=== PATIENT | male | born 1995 | race Asian ===

== ENCOUNTER 2017-09-24 07:13 | Emergency (ER) | payer OTHER ==
[2017-09-24 07:33] VITALS: PULSE 71; BMI 21.4
--- NOTE | 2017-09-24 07:33 | PDOC ---
History of Present Illness - General Chief Complaint: Pain Stated Complaint: CHEST PAIN Time Seen by Provider: 09/24/17 07:22 - History of Present Illness Initial Comments: Kiet Abreu is a previously healthy 22yo man who presents today complaining of malaise, generalized weakness, subjective fever, and sternal chest pain for several days. He was recently diagnosed with bronchitis 3 days ago and prescribed azithromycin, which he has been taking as prescribed. Then 2 days ago, he had a wisdom tooth extracted, and he has also been taking amoxicillin since that time. He is still having significant pain from his dental work, but he denies any increased swelling, pain, or continued bleeding. Yesterday, Mr Duarte took acetaminophen 3 times for pain with some improvement. Over the past day, Mr Abreu has had a very poor appetite with minimal PO intake. When he woke up this morning, he felt extremely weak and ill. He additionally noted anterior chest pain. This pain is constant, non-radiating, and not associated with breathing, arm movement, or exertion. He has never experienced similar pain before. His mother and , present at bedside, report that they noticed him become unresponsive for several minutes after he initially complained of the chest pain. At that point, they decided he needed to be seen in the ED. Mr Abreu denies any nausea, vomiting, diarrhea, constipation, urinary symptoms, difficulty breathing, continued cough, or objective fever. He does endorse a headache as well as continued left sided mouth pain after his dental procedure. Other than the antibiotics and acetaminophen yesterday, he does not take any medications at home. Past History - Past Medical History Allergies/Adverse Reactions: Allergies Allergy/AdvReac Type Severity Reaction Status Date / Time No Known Allergies Allergy Verified 09/24/17 07:16 Home Medications: Ambulatory Orders NK [No Known Home Medication] 09/24/17 - Suicide/Smoking/Psychosocial Hx Smoking History: Never smoked Review of Systems - Review of Systems Comments:: General: +malaise, +tactile fevers, +anorexia, +generalized weakness HEENT: No changes in vision, no changes in hearing, no congestion, no sore throat. +recent tooth extraction CV: No palpitations, no LE edema. +anterior chest pain Pulm: No SOB, no wheezing. +recent bronchitis GI: No nausea or vomiting, no change in bowel habits, no melena : No frequency, no urgency, no dysuria Musc: No back pain, no joint swelling, no recent injury Skin: No rash, no lesions, no erythema Endo: No excessive thirst, no heat/cold intolerance Heme: No unusual bruising or bleeding, no swollen glands Neuro: No syncope, no numbness/tingling, no focal weakness Vasc: No claudication Psych: No recent change in mood, no SI or HI *Physical Exam - Vital Signs Last Vital Signs Temp Pulse Resp BP Pulse Ox 97.7 F 71 16 100/61 98 09/24/17 07:16 09/24/17 07:16 09/24/17 07:16 09/24/17 07:16 09/24/17 07:16 - Physical Exam Comments: General: Appears ill but in no acute distress HEENT: PERRL, EOMI, MMM, voice normal, normal neck ROM. s/p left wisdom tooth extraction, no bleeding, no significant edema or erythema, no pus or sign of infection Cards: RRR, no murmur appreciated Pulm: Comfortable on room air, clear to auscultation bilaterally. No chest wall pain with palpation Abd: Soft, nontender, nondistended : No CVA tenderness Ext: Atraumatic. No LE edema. ROM intact. Strength 5/5 and equal bilaterally Vasc: Extremities WWP. Palpable radial and pedal pulses bilaterally Neuro: A&Ox3, CN grossly intact, normal speech, motor/sensory grossly intact and symmetric Psych: Mood appropriate to situation ED Treatment Course - LABORATORY CBC & Chemistry Diagram: 09/24/17 08:18 09/24/17 08:18 Medical Decision Making - Medical Decision Making 09/24/17 08:23 Kiet Abreu is an otherwise healthy 22yo man with recently diagnosed bronchitis and a tooth extraction within the past 3 days, currently taking amoxicillin and azithromycin, who presents with worsening malaise, generalized weakness, and anterior chest pain. - Chest pain could be cardiac, secondary to recently diagnosed bronchitis, developing pneumonia, or musculoskeletal. Very low suspicion for cardiac cause given stable vitals, patient's age and general state of health, and quality and location of pain. Will r/o with EKG and trop. CXR for possible pneumonia or worsening pulmonary infection - With malaise, possible fever at home, weakness, recently diagnosed respiratory infection, and recent dental work, there is concern for bacteremia or sepsis. Septic workup including CBC, CMP, lactate, VBG, coags, UA, blood cultures pending - 1L bolus NS ordered as pt is likely hypovolemic given reported poor PO intake Update: - EKG completed, NSR without abnormalities - 30mg IV toradol for pain - Labs, CXR pending 09/24/17 09:56 - Labs notable for WBC 14.0, tbili 1.9. CXR unremarkable. No other gross abnormalties - Ordered 1x zosyn given persistent leukocytosis despite taking two antibiotics at home 09/24/17 10:12 - Re-evaluated Mr Abreu - Feels significantly improved after receiving bolus fluids - Discontinued zosyn given improvement - Discussed admission vs home with patient and family. Would prefer to go home. Will follow up with PCP on Tuesday. - Symptoms likely due to dehydration secondary to recent illness and poor PO intake following oral surgery - Will discharge home. Should continue current abx prescriptions. Instructed to increase PO fluids at home. Agrees to plan. Seen and discussed with Dr Gomez. *DC/Admit/Observation/Transfer Diagnosis at time of Disposition: Dehydration - Discharge Dispostion Disposition: HOME Condition at time of disposition: Good Decision to Admit order: No - Referrals Referrals: Srinivasan Nagel MD [Primary Care Provider] - - Patient Instructions Printed Discharge Instructions: DI for Dehydration -- Child Additional Instructions: Discharge Instructions - You were seen in the ED for chest pain, weakness, and generally feeling ill. Your workup was negative for any serious problems with your heart or lungs that caused your symptoms - Your symtpoms improved after receiving fluids and may have been caused by dehydration - Please continue taking your previously prescribed antibiotics - Recommend ibuprofen (Advil, Motrin) for pain, fever, body aches. - Advise increased fluid intake at home. - You should follow up with your primary doctor on Tuesday or Tuesday next week - If you have continued fevers to 101F at home, shaking chills, worsening of your symptoms, are unable to take fluids or food by mouth, or have a worsening of your weakness and pain, please seek medical attention - Post Discharge Activity
[2017-09-24] MEDS ORDERED: SODIUM CHLORIDE 1,000 ML IV STA (07:44)
--- NOTE | 2017-09-24 08:12 | PDOC ---
Attending Attestation - Resident Resident Name: Patricia Escalera - ED Attending Attestation I have performed the following: I have examined & evaluated the patient, The case was reviewed & discussed with the resident, I agree w/resident's findings & plan, Exceptions are as noted - HPI HPI: 09/24/17 08:30 22 year old male with no past medical history presents with general malaise, tactile fevers, and weakness. Approximately 4 days ago, the patient started to develop fevers, nasal discharge , weakness, mild cough. Had seen his PMD 3 days ago, and was prescribed azithromycin. 2 days ago, underwent extraction of two wisdom teen left side. Was given amoxicillin. Pt reports compliance with taking medications. Did not eat or drink since feeling ill. Today, woke up feeling feeling very generally weak, lightheaded. states that she believes the patient has had a brief feinting episode in the bed. No injuries or falls. Reports nonpleuritic chest discomfort. Not exertional. No SOB. Stated had some abdominal cramping that is now resolved. No dysuria, urinary frequency. - Physicial Exam PE: 09/24/17 08:40 GENERAL: Awake, alert, and fully oriented. Tired appearing. Sluggish. HEAD: No signs of trauma EYES: EOMI, sclera anicteric, conjunctiva clear ENT: Auricles normal inspection, hearing grossly normal, nares patent, oropharynx clear without exudates. Moist mucosa. Left side of mouth with no bleeding, purulence, or foul smell. NECK: Normal ROM, supple LUNGS: Breath sounds equal, clear to auscultation bilaterally. No wheezes, and no crackles HEART: Regular rate and rhythm, normal S1 and S2, no murmurs, rubs or gallops ABDOMEN: Soft, nontender No guarding, no rebound. No masses EXTREMITIES: Normal range of motion, no edema. No clubbing or cyanosis. No cords, erythema, or tenderness NEUROLOGICAL: Cranial nerves II through XII grossly intact. Normal speech SKIN: Warm, Dry, normal turgor, no rashes or lesions noted. - Medical Decision Making 09/24/17 08:42 Vital Signs Temp Pulse Resp BP Pulse Ox 97.7 F 71 16 100/61 98 09/24/17 07:16 09/24/17 07:16 09/24/17 07:16 08 07:16 09/24/17 07:16 22 year old yo p/w weakness with tactile fevers, weakness while taking azithromycin, amoxicillin. Pt likely syncope in the setting of vasovagal/orthostasis/dehydration. ECG is reassuring and with NO evidence of brugada, WPW, HOCM, or prolonged QTc. Given the tactile fevers and while on antibiotics, will need to consider bacteremia. Differential includes dehydration, PNA, bronchitis. Unlikely to be ACS or PE. Labs, cultures, IVF, pain control, and reassess. 09/24/17 10:12 CBC, BMP 09/24/17 08:18 09/24/17 08:18 CMP Sodium 137 mmol/L (136-145) 09/24/17 08:18 Potassium 4.0 mmol/L (3.5-5.1) 09/24/17 08:18 Chloride 101 mmol/L (98-107) 09/24/17 08:18 Carbon Dioxide 30 mmol/L (21-32) 09/24/17 08:18 Anion Gap 6 (8-16) L 09/24/17 08:18 BUN 16 mg/dL (7-18) 09/24/17 08:18 Creatinine 1.3 mg/dL (0.7-1.3) 09/24/17 08:18 Creat Clearance w eGFR > 60 (>60) 09/24/17 08:18 Random Glucose 93 mg/dL (74-106) 09/24/17 08:18 Lactic Acid 1.0 mmol/L (0.0-2.0) 09/24/17 08:18 Calcium 9.2 mg/dL (8.5-10.1) 09/24/17 08:18 Total Bilirubin 1.9 mg/dL (0.2-1.0) H 09/24/17 08:18 AST 23 U/L (15-37) 09/24/17 08:18 ALT 32 U/L (12-78) 09/24/17 08:18 Alkaline Phosphatase 54 U/L (45-117) 09/24/17 08:18 Troponin I < 0.02 ng/ml (0.00-0.05) 09/24/17 08:00 Total Protein 7.6 g/dl (6.4-8.2) 09/24/17 08:18 Albumin 4.0 g/dl (3.4-5.0) 09/24/17 08:18 Chest xray reviewed. No acute findings. Pt was given 2L of IVF and the patient reports feeling significantly better and much more alert and aware. The patient states that he would like to go home. I suspect that the patient likely had dehydration, which may explain why he was feeling weak. His labs demonstrates a mild leukocytosis of 14.0, but given his recent course, advised the patient to continue his antibiotics. I advised that if the patient reports feeling weaker again, or is unable to tolerate PO, to return to the ER. Heart Score/ECG Review #1 ECG reviewed & interpreted by me at: 08:00 09/24/17 08:12 NSR 67, no std/connor, normal axis, normal intervals, QTC 429 msec
[2017-09-24] MEDS ORDERED: KETOROLAC TROMETHAMINE 30 MG/1 ML VIAL IVPUSH ONE (08:14)
[2017-09-24] MEDS ORDERED: KETOROLAC TROMETHAMINE 30 MG/1 ML VIAL ONE (08:32)
[2017-09-24 08:44] LABS: BASO % 0.2 % (0-2.0); EOS % 2.6 % (0-4.5); HEMATOCRIT 45.5 % (35.4-49); HEMOGLOBIN 15.1 GM/dL (11.7-16.9); LYMPH % 2.8 % (8-40); MCH 26.2 pg (25.7-33.7); MCHC 33.2 g/dl (32.0-35.9); MEAN CELL VOLUME 78.7 fl (80-96); MEAN PLT VOLUME 8.4 fl (7.5-11.1); MONO % 5.9 % (3.8-10.2); NEUT % 88.5 % (42.8-82.8); PLATELET COUNT 212 K/MM3 (134-434); RBC 5.78 M/mm3 (4.00-5.60); RDW 12.9 % (11.9-15.9); VENOUS PC02 53.9 mmHg (38-52); VENOUS PH 7.35 (7.32-7.42); VENOUS PO2 30.1 mmHg (28-48)
[2017-09-24] MEDS ORDERED: SODIUM CHLORIDE 0.9% 500 ML INFUS.BAG IV ONE (08:48)
[2017-09-24 08:57] LABS: INR 1.17 (0.83-1.09); PROTHROMBIN TIME (PATIENT) 13.2 SEC (9.7-13.0)
[2017-09-24 09:00] LABS: ACTIVATED PTT 31.2 SECONDS (25.2-36.5)
[2017-09-24 09:06] LABS: ANION GAP 6 (8-16); BILIRUBIN,TOTAL 1.9 mg/dL (0.2-1.0); BLOOD UREA NITROGEN 16 mg/dL (7-18); CALCIUM 9.2 mg/dL (8.5-10.1); CHLORIDE 101 mmol/L (98-107); CO2 30 mmol/L (21-32); CREATININE 1.3 mg/dL (0.7-1.3); GLUCOSE,RANDOM 93 mg/dL (74-106); SGOT/AST 23 U/L (15-37); SGPT/ALT 32 U/L (12-78); SODIUM 137 mmol/L (136-145); TOT PROT 7.6 g/dl (6.4-8.2)
[2017-09-24 09:07] LABS: ALK PHOS 54 U/L (45-117)
[2017-09-24] MEDS ORDERED: PIPERACILLIN/TAZOB 3.375 GM 3.375 GM in DEXTROSE 5%-WATER - 50 ML IVPB ONE ×2 (09:52→10:24)
[2017-09-24] MEDS ORDERED: PIPERACILLIN/TAZOB 3.375 GM 3.375 GM/50 ML BAG IVPB ONE (10:02)
[2017-09-24 10:39] VITALS: BP 101/49; TEMP 99
--- NOTE | 2017-09-25 08:57 | EKG ---
Test Reason : Blood Pressure : / mmHG Vent. Rate : 067 BPM Atrial Rate : 067 BPM P-R Int : 166 ms QRS Dur : 096 ms QT Int : 406 ms P-R-T Axes : 074 082 065 degrees QTc Int : 429 ms NORMAL SINUS RHYTHM POSSIBLE LEFT ATRIAL ENLARGEMENT BORDERLINE ECG NO PREVIOUS ECGS AVAILABLE Confirmed by LAILA RODARTE, SHARRI ([id number]) on 09/25/2017 8:57:12 AM Referred By: Confirmed By:SHARRI ULLOA MD
--- NOTE | 2017-09-25 09:43 | PDOC ---
Patient Follow-up (Call Back) - Post ED Follow - Up Chief Complaint: Weakness Condition at time of discharge: Good Disposition at time of original discharge: HOME Reason for Call Back: Abnwl. Microbiology (gram positive cocci on blood culture) - Disposition Additional Instructions/Notes: called patient regarding blood culture results. Patient did not answer. VM left for patient to come back to ED and also call back to acknowledge receipt of VM
== END 2017-09-24 10:44 | disposition home or self-care (01) ==
LOC: JER 07:13
DX: E86.0 Dehydration (principal)
CPT/HCPCS: 36415; 71045-TC-FY; 80053; 82803; 83605; 84484; 85025; 85610; 85730; 87040; 93005; 93010; 99285-25; J7030

== ENCOUNTER 2017-09-25 11:04 | Emergency (ER) | payer OTHER ==
[2017-09-25 11:25] VITALS: TEMP 98.4; BMI 21.4
--- NOTE | 2017-09-25 12:27 | PDOC ---
History of Present Illness - General Chief Complaint: Respiratory Stated Complaint: CALLED BY ED Time Seen by Provider: 09/25/17 12:00 - History of Present Illness Initial Comments: 09/25/17 13:08 The patient is a 22 year old male with no significant PMH who presents for re- evaluation following positive blood cultures. The patient notes that he presented to the ED 1 day ago for complaints of generalized weakness and cough. The patient improved after NS and was discharged home. One of his blood culture tubes was positive for gram positive cocci in chains and the patient was called back to the ER. He states that although he feels improved, he continues to experience some generalized weakness and cough. He otherwise denies fevers, chills, SOB, chest pain, nausea, vomiting, abdominal pain, or changes with urination or bowel movements. Past History - Past Medical History Allergies/Adverse Reactions: Allergies Allergy/AdvReac Type Severity Reaction Status Date / Time No Known Allergies Allergy Verified 09/25/17 11:20 Home Medications: Ambulatory Orders NK [No Known Home Medication] 09/24/17 COPD: No - Suicide/Smoking/Psychosocial Hx Smoking History: Never smoked Have you smoked in the past 12 months: No Substance Use Type: None Review of Systems - Review of Systems Comments:: 09/25/17 13:13 Constitutional: Fatigue. No fevers, chills, malaise HEENT: No Rhinorrhea, nasal congestion, visual changes Cardiovascular: No chest pain, syncope, palpitations, lightheadedness Respiratory: Cough, No SOB, Hemoptysis, Gastrointestinal: No Abdominal pain, Nausea, Vomiting, Constipation, Diarrhea, Melena Genitourinary: No Dysuria, Frequency, Urgency, Hesitancy, Hematuria, Flank pain Musculoskeletal: No Myalgia, arthralgia Skin: No rashes, itching, bruising, pallor Neurologic: No Headache, Dizziness, Numbness, Weakness, or Tingling Psychiatric: No Hallucinations. No SI or HI *Physical Exam - Vital Signs Last Vital Signs Temp Pulse Resp BP Pulse Ox 98.4 F 65 18 108/63 99 09/25/17 11:18 09/25/17 11:18 09/25/17 11:18 09/25/17 11:18 09/25/17 11:18 - Physical Exam Comments: 09/25/17 13:13 General Appearance: Nourished. No Apparent Distress HEENT: No Pharyngeal Erythema, Tonsillar Exudate, Tonsillar Erythema Neck: No Cervical Lymphadenopathy Respiratory/Chest: Lungs Clear, Normal Breath Sounds. No Crackles, Rales, Rhonchi, Wheezing Cardiovascular: Regular Rhythm, Regular Rate. No Murmur, Gallops, Rubs Gastrointestinal/Abdominal: Normal Bowel Sounds, Soft. No Guarding, Rebound, Tenderness Musculoskeletal: No CVA Tenderness Extremity: Normal Capillary Refill Integumentary: Normal Color, Dry, Warm Neurologic: Fully Oriented, Alert, Normal Mood/Affect, Normal Response, ED Treatment Course - LABORATORY CBC & Chemistry Diagram: 09/25/17 13:07 09/25/17 13:07 Medical Decision Making - Medical Decision Making 09/25/17 13:13 The patient is a 22 year old male with no significant PMH who presents for re- evaluation following positive blood cultures. The patient appears clinically well on exam here in the ED. Only one tube was positive on the patient's blood cultures and it is likely contamination. We will repeat the patient's blood cultures today and obtain a cbc, cmp to evaluate further. We will hydrate the patient with iv fluids. We don't believe he requires antibiotics at this time given his clinical presentation and normal vital signs. We will continue to monitor and reassess while here in the ED. 09/25/17 14:41 CBC, cmp are unremarkable. The patient appears well on clinical exam. We are comfortable discharging the patient home with primary care provider follow up. We have also re-drawn the patient's blood cultures. The patient's lfts were mildly elevated although the patient is not complaining of abdominal pain and we are comfortable with the patient following up as an outpatient. We discussed the results, plan, and return precautions with the patient who voices understanding and is agreeable with the plan. *DC/Admit/Observation/Transfer Diagnosis at time of Disposition: Cough - Discharge Dispostion Disposition: HOME Condition at time of disposition: Stable Decision to Admit order: No - Referrals Referrals: Srinivasan Nagel MD [Primary Care Provider] - - Patient Instructions Printed Discharge Instructions: DI for Cough -- Adult Additional Instructions: Please return to the ER if you experience concerning or worsening symptoms including worsening abdominal pain, fevers, or if you feel ill. Your lab results show a small elevation in your liver enzymes. We have also re- drawn your blood cultures and you will receive a call if they are positive. Please make sure you call to schedule a follow up appointment with your primary care provider within 1-2 days to discuss your ER visit and further management of your symptoms. - Post Discharge Activity
[2017-09-25] MEDS ORDERED: SODIUM CHLORIDE 1,000 ML IV STA (12:34)
--- NOTE | 2017-09-25 12:39 | PDOC ---
Attending Attestation - Resident Resident Name: Wil Lizarragael - ED Attending Attestation I have performed the following: I have examined & evaluated the patient, The case was reviewed & discussed with the resident, I agree w/resident's findings & plan, Exceptions are as noted - HPI HPI: 09/25/17 12:34 22y M no pmhx represents to the ED - was evaluated yesterday for a cp/abd pain , had blood work done including culutures, 1 bottle came back postiive for gram positive cocci in chains. Pt denies any fevers. STates he still has some cough and feels alittle weak. denies any neausea/vomiting. recent history of bronchitis on zpack, then had a wisdom tooth extraction and was started amoxicillin. on exam pt appears well not tachycardic cardiac exam rrr abd soft nontender pulm clear to ascultation will recheck his labs as he had a white count of 14 yesterday will resend cultures will reassess, if WBC elevated will consider admission otherwise suspect contapmination and will fu with cultures as outpatient - Medical Decision Making 09/25/17 14:32 labs reviewed wbc resolved lfts slightly elevatged, will have pt fu with dr alan will defer further workup here as he does not have any abdminal pain
[2017-09-25 13:31] LABS: BASO % 0.2 % (0-2.0); HEMOGLOBIN 15.1 GM/dL (11.7-16.9); LYMPH % 29.7 % (8-40); MCH 26.7 pg (25.7-33.7); MCHC 33.5 g/dl (32.0-35.9); MEAN CELL VOLUME 79.8 fl (80-96); MEAN PLT VOLUME 8.7 fl (7.5-11.1); MONO % 10.4 % (3.8-10.2); NEUT % 46.7 % (42.8-82.8); PLATELET COUNT 236 K/MM3 (134-434); RBC 5.64 M/mm3 (4.00-5.60); RDW 12.9 % (11.9-15.9); WHITE BLOOD COUNT 5.3 K/mm3 (4.0-10.0)
[2017-09-25 13:56] LABS: ALBUMIN 4.1 g/dl (3.4-5.0); ALK PHOS 50 U/L (45-117); ANION GAP 6 (8-16); BILIRUBIN,TOTAL 1.3 mg/dL (0.2-1.0); BLOOD UREA NITROGEN 9 mg/dL (7-18); CALCIUM 9.4 mg/dL (8.5-10.1); CHLORIDE 102 mmol/L (98-107); CO2 31 mmol/L (21-32); CREATININE 1.2 mg/dL (0.7-1.3); GLUCOSE,RANDOM 87 mg/dL (74-106); POTASSIUM 4.5 mmol/L (3.5-5.1); SGOT/AST 60 U/L (15-37); SGPT/ALT 96 U/L (12-78); SODIUM 139 mmol/L (136-145); TOT PROT 7.9 g/dl (6.4-8.2)
[2017-09-25 14:59] VITALS: BP 115/66; PULSE 64
== END 2017-09-25 14:59 | disposition home or self-care (01) ==
LOC: JER 11:04
PROC: 3E0337Z Introduction of Electrolytic and Water Balance Substance into Peripheral Vein, Percutaneous Approach (ICD-10-PCS; principal; 2017-09-25)
DX: R05 Cough (principal)
CPT/HCPCS: 36415; 80053; 83605; 85025; 87040; 99283-25; J7030